=== PATIENT | male | born 1970 | race American Indian/Alaskan Native ===

== ENCOUNTER 2021-11-09 23:44 | Observation (INO) | payer MEDICARE ==
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
[2021-11-10 00:28] LABS: Hemoglobin 12.2 gm/dl (11.8-15.2); Mean Corpuscular HGB Conc 34 % (32-34); Mean Corpuscular Volume 106 fl (84-94); Platelet Count 191 K/mm3 (140-440); Red Blood Count 3.41 M/mm3 (3.65-5.03)
--- NOTE | 2021-11-10 00:30 | XRay Report ---
CHEST 1 VIEW INDICATION / CLINICAL INFORMATION: weakness esrd. COMPARISON: None available. FINDINGS: SUPPORT DEVICES: Left subclavian ICD HEART / MEDIASTINUM: No significant abnormality. LUNGS / PLEURA: No significant pulmonary or pleural abnormality. No pneumothorax. ADDITIONAL FINDINGS: No significant additional findings. IMPRESSION: 1. No acute findings. Signer Name: Sukh Aldana MD Signed: 11/10/2021 12:26 AM Workstation Name: [id number]
[2021-11-10 00:43] LABS: INR 0.97 (0.87-1.13)
[2021-11-10] MEDS ORDERED: SODIUM CHLORIDE 0.9% 500 ML 500 ML IV ONE (01:07)
[2021-11-10] MEDS ORDERED: MAGNESIUM HYDROXIDE (MOM) ORAL LIQD UDC PO PRN (01:22)
[2021-11-10] MEDS ORDERED: ONDANSETRON 4 MG/2 ML INJ IV PRN (01:22)
[2021-11-10] MEDS ORDERED: MORPHINE 4 MG/1 ML INJ IV PRN (01:22)
[2021-11-10] MEDS ORDERED: MORPHINE 2 MG/1 ML INJ IV PRN (01:22)
[2021-11-10] MEDS ORDERED: ACETAMINOPHEN 325 MG TAB PO PRN (01:22)
[2021-11-10] MEDS ORDERED: POTASSIUM CHLORIDE ER 20 MEQ TAB PO ONE (01:23)
[2021-11-10] MEDS ORDERED: SODIUM CHLORIDE 0.9% 1000 ML 1,000 ML IV SCH (01:30)
--- NOTE | 2021-11-10 01:36 | History and Physical Report ---
History of Present Illness Date of examination: 11/10/21 Date of admission: 11/10/2021 Chief complaint: Generalized Weakness History of present illness: 51-year-old -[place] Citizen male with known history of end-stage renal disease on dialysis on Wednesdays and Fridays brought into the emergency room today for evaluation of generalized weakness and low blood pressure. Patient had received dialysis earlier in the day but later on stated that he was having generalized weakness. He denies any chest pain or shortness of breath, no nausea vomiting, no abdominal pain, no headache or dizziness and no diaphoresis, no fever or chills. Patient feels that he may have been dialyzed for prolonged period of time. Patient was said to be at [facility] on a scooter when he was noted to have low blood pressure feeling very weak. Work-up in the emergency room today, significant findings on the labs were potassium level of 3.3, elevated creatinine kinase of 2246. Magnesium 2.4, BUN of 39 creatinine of 4.8. Chest x-ray was unremarkable. Patient with end-stage renal disease on dialysis being admitted for generalized weakness, hypokalemia and hypotension. Past History Past Medical History: dialysis, ESRD Past Surgical History: No surgical history Social history: no significant social history Medications and Allergies Allergies Allergy/AdvReac Type Severity Reaction Status Date / Time No Known Allergies Allergy Verified 11/10/21 01:11 Active Meds: Active Medications Acetaminophen (Acetaminophen 325 Mg Tab) 650 mg PO Q4H PRN PRN Reason: Pain MILD(1-3)/Fever >100.5/DUNCAN Heparin Sodium (Porcine) (Heparin 5,000 Unit/1 Ml Vial) 5,000 unit SUB-Q Q8HR ASTON Sodium Chloride (Nacl 0.9% 500 Ml) 500 mls @ 999 mls/hr IV ONCE ONE Stop: 11/10/21 01:37 Sodium Chloride (Nacl 0.9% 1000 Ml) 1,000 mls @ 75 mls/hr IV DIRECT ASTON Magnesium Hydroxide (Magnesium Hydroxide (Mom) Oral Liqd Udc) 30 ml PO Q4H PRN PRN Reason: Constipation Morphine Sulfate (Morphine 2 Mg/1 Ml Inj) 2 mg IV Q4H PRN PRN Reason: Pain, Moderate (4-6) Morphine Sulfate (Morphine 4 Mg/1 Ml Inj) 4 mg IV Q4H PRN PRN Reason: Pain , Severe (7-10) Ondansetron HCl (Ondansetron 4 Mg/2 Ml Inj) 4 mg IV Q8H PRN PRN Reason: Nausea And Vomiting Sodium Chloride (Sodium Chloride 0.9% 10 Ml Flush Syringe) 10 ml IV BID ASTON Sodium Chloride (Sodium Chloride 0.9% 10 Ml Flush Syringe) 10 ml IV PRN PRN PRN Reason: LINE FLUSH Review of Systems Constitutional: weakness, no fever, no chills Ears, nose, mouth and throat: no nasal congestion, no sore throat Cardiovascular: no chest pain, no palpitations Respiratory: no cough, no shortness of breath Gastrointestinal: no nausea, no vomiting, no diarrhea Genitourinary Male: no dysuria, no hematuria, no flank pain Musculoskeletal: no neck pain, no low back pain Integumentary: no rash, no pruritis Neurological: no headaches, no confusion Psychiatric: no anxiety, no depression Endocrine: no polyphagia, no polydipsia, no polyuria, no nocturia Exam - Constitutional Vitals: Temp Pulse Resp BP Pulse Ox 97.8 F 87 14 98/56 98 11/10/21 00:04 11/10/21 00:04 11/10/21 00:04 11/10/21 00:04 11/10/21 00:04 General appearance: Present: no acute distress, well-nourished, obese - EENT Eyes: Present: PERRL, EOM intact. Absent: scleral icterus ENT: clear oral mucosa, dentition normal - Neck Neck: Present: supple, normal ROM - Respiratory Respiratory effort: normal Respiratory: bilateral: CTA - Cardiovascular Rhythm: regular Heart Sounds: Present: S1 & S2. Absent: systolic murmur, diastolic murmur, rub, click - Extremities Extremities: no ischemia, pulses intact, pulses symmetrical, normal temperature, normal color, Full ROM Extremity abnormal: edema (2+ bilateral lower extremity edema) Peripheral Pulses: within normal limits - Abdominal General gastrointestinal: Present: soft, non-tender, non-distended, normal bowel sounds. Absent: mass - Integumentary Integumentary: Present: clear, warm, dry, normal turgor. Absent: rash - Musculoskeletal Musculoskeletal: strength equal bilaterally - Psychiatric Psychiatric: appropriate mood/affect, intact judgment & insight, memory intact, cooperative - Neurologic Neurologic: CNII-XII intact, no focal deficits, moves all extremities - Additional findings Additional findings: Skin: Multiple open ulcers in the distal one third of the left leg. No obvious drainage Results - Labs CBC & Chem 7: 11/10/21 00:04 11/10/21 00:04 Labs: Abnormal lab results 11/10/21 11/10/21 Range/Units 00:04 00:04 RBC 3.41 L (3.65-5.03) M/mm3 MCV 106 H (84-94) fl MCH 36 H (28-32) pg RDW 17.0 H (13.2-15.2) % Potassium 3.3 L (3.6-5.0) mmol/L Chloride 96.2 L (98-107) mmol/L BUN 39 H (9-20) mg/dL Creatinine 4.8 H (0.8-1.3) mg/dL Glucose 110 H (75-100) mg/dL Magnesium 2.40 H (1.7-2.3) mg/dL Total Creatine Kinase 2246 H (55-170) units/L Assessment and Plan Assessment: 1. Generalized weakness 2. Elevated creatinine kinase 3. End-stage renal disease on dialysis 4. Hypokalemia 5. Hypotension Plan: 1. Patient admitted and placed on gentle IV fluid hydration and monitor vital signs closely. 2. Consult placed to nephrology for evaluation and recommendations. 3. Potassium will be repleted and will monitor chemistry 4. We will resume routine home medications once reconciled. DVT prophylaxis: Subcutaneous heparin CODE STATUS: Full code
[2021-11-10] MEDS: HEPARIN 5,000 UNIT/1 ML VIAL SUB-Q SCH ×3 (06:02→21:37)
--- NOTE | 2021-11-10 12:13 | Progress Note ---
Assessment and Plan Assessment and plan: 51-year-old -Swedish male with known history of end-stage renal disease on dialysis on Wednesdays and Fridays brought into the emergency room today for evaluation of generalized weakness and low blood pressure. Patient received dialysis earlier in the day but later on stated that he was having generalized weakness. Patient was said to be at [employer] on a scooter when he was noted to have low blood pressure feeling very weak. Work-up in the emergency room revealed potassium level of 3.3, elevated creatinine kinase of 2246. Magnesium 2.4, BUN of 39 creatinine of 4.8. Chest x-ray was unremarkable. Generalized weakness Rhabdomyolysis ESRD on HD Hypokalemia Hypotension 11/10/2021. Patient states that he feels near baseline. Await nephrology consultation. Replete potassium. Await PT evaluation to determine disposition. History Interval history: No new issues overnight Hospitalist Physical - Constitutional Vitals: Temp Pulse Resp BP Pulse Ox 97.8 F 85 19 128/81 94 11/10/21 02:32 11/10/21 02:32 11/10/21 03:50 11/10/21 02:32 11/10/21 03:50 General appearance: Present: no acute distress, well-nourished, obese - EENT Eyes: Present: PERRL, EOM intact ENT: hearing intact, clear oral mucosa, dentition normal - Neck Neck: Present: supple, normal ROM - Respiratory Respiratory effort: normal Respiratory: bilateral: CTA - Cardiovascular Rhythm: regular Heart Sounds: Present: S1 & S2. Absent: gallop, rub - Extremities Extremities: no ischemia, No edema, Full ROM - Abdominal General gastrointestinal: soft, non-tender, non-distended, normal bowel sounds - Integumentary Integumentary: Present: clear, warm, dry - Neurologic Neurologic: CNII-XII intact, moves all extremities Results - Labs CBC & Chem 7: 11/10/21 00:04 11/10/21 00:04 Labs: Laboratory Last Values WBC 6.8 K/mm3 (4.5-11.0) 11/10/21 00:04 RBC 3.41 M/mm3 (3.65-5.03) L 11/10/21 00:04 Hgb 12.2 gm/dl (11.8-15.2) 11/10/21 00:04 Hct 36.0 % (35.5-45.6) 11/10/21 00:04 MCV 106 fl (84-94) H 11/10/21 00:04 MCH 36 pg (28-32) H 11/10/21 00:04 MCHC 34 % (32-34) 11/10/21 00:04 RDW 17.0 % (13.2-15.2) H 11/10/21 00:04 Plt Count 191 K/mm3 (140-440) 11/10/21 00:04 PT 14.0 Sec. (12.2-14.9) 11/10/21 00:04 INR 0.97 (0.87-1.13) 11/10/21 00:04 Sodium 141 mmol/L (137-145) 11/10/21 00:04 Potassium 3.3 mmol/L (3.6-5.0) L 11/10/21 00:04 Chloride 96.2 mmol/L (98-107) L 11/10/21 00:04 Carbon Dioxide 28 mmol/L (22-30) 11/10/21 00:04 Anion Gap 20 mmol/L 11/10/21 00:04 BUN 39 mg/dL (9-20) H 11/10/21 00:04 Creatinine 4.8 mg/dL (0.8-1.3) H 11/10/21 00:04 Estimated GFR 15 ml/min 11/10/21 00:04 BUN/Creatinine Ratio 8 % 11/10/21 00:04 Glucose 110 mg/dL (75-100) H 11/10/21 00:04 Calcium 9.0 mg/dL (8.4-10.2) 11/10/21 00:04 Magnesium 2.40 mg/dL (1.7-2.3) H 11/10/21 00:04 Total Creatine Kinase 2246 units/L (55-170) H 11/10/21 00:04 Active Medications - Current Medications Current Medications: Generic Name Dose Route Start Last Admin Trade Name Freq PRN Reason Stop Dose Admin Acetaminophen 650 mg 11/10/21 01:22 Acetaminophen 325 Mg Tab PO Q4H PRN Pain MILD(1-3)/Fever >100.5/DUNCAN Heparin Sodium (Porcine) 5,000 unit 11/10/21 06:00 11/10/21 06:02 Heparin 5,000 Unit/1 Ml Vial SUB-Q 5,000 unit Q8HR ASTON Administration Sodium Chloride 1,000 mls @ 75 mls/hr 11/10/21 01:30 Nacl 0.9% 1000 Ml IV DIRECT ASTON Magnesium Hydroxide 30 ml 11/10/21 01:22 Magnesium Hydroxide (Mom) Oral Liqd Udc PO Q4H PRN Constipation Morphine Sulfate 2 mg 11/10/21 01:22 Morphine 2 Mg/1 Ml Inj IV Q4H PRN Pain, Moderate (4-6) Morphine Sulfate 4 mg 11/10/21 01:22 Morphine 4 Mg/1 Ml Inj IV Q4H PRN Pain , Severe (7-10) Ondansetron HCl 4 mg 11/10/21 01:22 Ondansetron 4 Mg/2 Ml Inj IV Q8H PRN Nausea And Vomiting Sodium Chloride 10 ml 11/10/21 10:00 11/10/21 11:02 Sodium Chloride 0.9% 10 Ml Flush Syringe IV 10 ml BID ASTON Administration Sodium Chloride 10 ml 11/10/21 01:22 Sodium Chloride 0.9% 10 Ml Flush Syringe IV PRN PRN LINE FLUSH
--- NOTE | 2021-11-10 12:15 | Electrocardiograph Report ---
[facility] Test Date: 2021-11-10 Test Time: 00:14:42 Pat Name: YONNY PANTOJA Department: Room: A390 1 Gender: M Registered Nurse Float Pool: LARRY : [id number] Requested By: CARLIN GE Order Number: [id number] Reading MD: Cruzito Nguyen Measurements Intervals [place] Rate: 87 P: 72 NV: 194 QRS: 16 QRSD: 115 T: 58 QT: 463 QTc: 553 Interpretive Statements Sinus rhythm Ventricular premature complex Nonspecific intraventricular conduction delay Anterior infarct, old Prolonged QT interval No previous ECG available for comparison Electronically Signed On 11-10-2021 12:14:39 EDT by Cruzito Nguyen
--- NOTE | 2021-11-10 13:12 | Consultation ---
History of Present Illness - History of Present Illness Thank you for the consultation ! Patient was evaluated today, Assessment and plan; #End-stage kidney disease: Patient will continue to receive hemodialysis treatment 3 times a week and has had dialysis yesterday we will check the electrolytes tomorrow and consider higher dialysate potassium bath, may consider sodium modeling,, Patient will receive his hemodialysis treatment tomorrow Monitor dialysis related labs/monitor for any access issues Fluid restriction 1200 cc/day high-protein diet #Access: Needs to be monitored during dialysis #Hypertension and volume: Blood pressure has been low, he is being evaluated by cardiology if needed will consider using midodrine, his BMI is 57.3 morbidly obese male #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: To monitor and follow erythropoietin periodically goal hemoglobin between 10-11-1/2 Minimize lab draw in dialysis patients, if possible consider limiting to dialysis days #Bone mineral disorder and secondary hyperparathyroidism; Monitor phosphorus binders as necessary goal phosphorus less than 5-1/2 #Diet and nutrition: Consider high-protein diet nutrition supplementation, #Medication recommendation: Please dose for creatinine clearance less than 15 cc/min All related questions have been addressed with the patient including diet lifestyle changes fluid restriction sodium restrictions avoidance of processed food as much as possible. Patient needs radical changes in his diet and lifestyle, overall prognosis g uarded to poor due to end-stage kidney disease and multiple complex health issues If you have any questions regarding this patient's renal care please feel free to reach me at [phone] Author: Arsenio Salas M.D. [facility], 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, he does go to [facility], has had dialysis yesterday currently is feeling comfortable, he is morbidly obese, events of this hospitalization were noted Hemoglobin was 12.2 potassium 3.3 today with a BUN of 39 creatinine of 4.8, blood pressure was borderline 98/56, Past medical history: End-stage kidney disease 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 Secondary hyperparathyroidism Hypertension Current allergies: Reviewed from the current chart Social history: Reviewed from the current chart Family history: Reviewed from the current chart Review of system: Positive for All other review of systems negative Physical examination Vitals: Reviewed General: No acute distress HEENT: Oral mucosa moist no pallor or icterus Neck: Supple without any JVD thyromegaly or nodular mass Chest: Clear to auscultation Heart: Regular rate and rhythm S1-S2 heard no S3-S4 Abdomen: Soft nontender, bowel sounds present no renal bruit no suprapubic masses no CVA tenderness noted Morbidly obese abdomen, very limited examination Extremity: Minimal edema dry skin no peripheral cyanosis Per patient fistula has been working well and was evaluated nearly 3 months ago Endocrine: Thyroid not enlarged Psychiatric: No agitation and aggression noted Musculoskeletal: No joint effusion noted Labs and x-rays: Reviewed from this admission Past History Past Medical History: dialysis, ESRD Past Surgical History: No surgical history Social history: no significant social history Medications and Allergies Allergies Allergy/AdvReac Type Severity Reaction Status Date / Time No Known Allergies Allergy Verified 11/10/21 01:11 Home Medications Medication Instructions Recorded Confirmed Last Taken Type No Known Home Medications [No 11/10/21 11/10/21 Unknown History Reported Home Medications] Active Meds: Active Medications Acetaminophen (Acetaminophen 325 Mg Tab) 650 mg PO Q4H PRN PRN Reason: Pain MILD(1-3)/Fever >100.5/DUNCAN Heparin Sodium (Porcine) (Heparin 5,000 Unit/1 Ml Vial) 5,000 unit SUB-Q Q8HR ASTON Last Admin: 11/10/21 06:02 Dose: 5,000 unit Sodium Chloride (Nacl 0.9% 1000 Ml) 1,000 mls @ 75 mls/hr IV DIRECT ASTON Magnesium Hydroxide (Magnesium Hydroxide (Mom) Oral Liqd Udc) 30 ml PO Q4H PRN PRN Reason: Constipation Morphine Sulfate (Morphine 2 Mg/1 Ml Inj) 2 mg IV Q4H PRN PRN Reason: Pain, Moderate (4-6) Morphine Sulfate (Morphine 4 Mg/1 Ml Inj) 4 mg IV Q4H PRN PRN Reason: Pain , Severe (7-10) Ondansetron HCl (Ondansetron 4 Mg/2 Ml Inj) 4 mg IV Q8H PRN PRN Reason: Nausea And Vomiting Sodium Chloride (Sodium Chloride 0.9% 10 Ml Flush Syringe) 10 ml IV BID ASTON Last Admin: 11/10/21 11:02 Dose: 10 ml Sodium Chloride (Sodium Chloride 0.9% 10 Ml Flush Syringe) 10 ml IV PRN PRN PRN Reason: LINE FLUSH Exam - Vital Signs Vital signs: Vital Signs Temp Pulse Resp BP Pulse Ox 97.8 F 87 14 98/56 98 11/10/21 00:04 11/10/21 00:04 11/10/21 00:04 11/10/21 00:04 11/10/21 00:04 Results - Lab Results 11/10/21 00:04 11/10/21 00:04 Most recent lab results Calcium 9.0 mg/dL (8.4-10.2) 11/10/21 00:04 Magnesium 2.40 mg/dL (1.7-2.3) H 11/10/21 00:04
[2021-11-11 05:53] LABS: Basophils # (Auto) 0.1 K/mm3 (0.0-0.1); Basophils % (Auto) 0.9 % (0.0-1.8); Eosinophils # (Auto) 0.2 K/mm3 (0.0-0.4); Eosinophils % (Auto) 3.6 % (0.0-4.3); Hematocrit 36.1 % (35.5-45.6); Hemoglobin 12.2 gm/dl (11.8-15.2); Lymphocytes # (Auto) 0.8 K/mm3 (1.2-5.4); Lymphocytes % (Auto) 12.7 % (13.4-35.0); Mean Corpuscular HGB Conc 34 % (32-34); Mean Corpuscular Volume 105 fl (84-94); Monocytes # (Auto) 0.7 K/mm3 (0.0-0.8); Monocytes % (Auto) 12.2 % (0.0-7.3); Platelet Count 173 K/mm3 (140-440); Red Blood Count 3.42 M/mm3 (3.65-5.03); Red Cell Distribution Width 17.4 % (13.2-15.2)
[2021-11-11] MEDS: HEPARIN 5,000 UNIT/1 ML VIAL SUB-Q SCH ×2 (06:10→14:58)
[2021-11-11 06:12] LABS: Calcium 8.1 mg/dL (8.4-10.2)
--- NOTE | 2021-11-11 09:36 | Discharge Summary ---
Providers - Providers Date of Admission: 11/10/21 01:22 Date of discharge: 11/11/21 Attending physician: KEIRY HAMILTON 11/10/21 01:22 Consult to Physician [CONS] Routine Comment: Consulting Provider: TYLER ROBERTO Physician Instructions: Reason For Exam: End-stage renal disease on dialysis 11/10/21 09:45 Physical Therapy Evaluation and Treat [CONS] Routine Comment: Reason For Exam: gen weakness Hospitalization Reason for admission: Generalized weakness Condition: Good Hospital course: 51-year-old -Spanish male with known history of end-stage renal disease on dialysis on Wednesdays and Fridays brought into the emergency room today for evaluation of generalized weakness and low blood pressure. Patient r eceived dialysis earlier in the day but later on stated that he was having generalized weakness. Patient was said to be at [facility] on a scooter when he was noted to have low blood pressure feeling very weak. Work-up in the emergency room revealed potassium level of 3.3, elevated creatinine kinase of 2246. Magnesium 2.4, BUN of 39 creatinine of 4.8. Chest x-ray was unremarkable. The patient was admitted with diagnosis below Generalized weakness Rhabdomyolysis ESRD on HD Hypokalemia Hypotension Shortly after admission, patient stated that he felt near baseline. Nephrology was consulted for hemodialysis. Repleted potassium. The patient reports that he feels much better and back to his baseline. Therefore, patient will discharge home and is to follow-up with his PCP and nephrology. Dedicated discharge time 35 minutes Disposition: 01 HOME / SELF CARE / HOMELESS Final Discharge Diagnosis (Prints w/discharge instructions): Generalized weakness. Rhabdomyolysis. ESRD on HD. Hypokalemia. Hypotension Core Measure Documentation - Palliative Care Palliative Care/ Comfort Measures: Not Applicable - Core Measures Any of the following diagnoses?: none Exam - Constitutional Vitals: Temp Pulse Resp BP Pulse Ox 98.9 F 92 H 20 143/69 96 11/11/21 05:17 11/11/21 05:17 11/11/21 05:17 11/11/21 05:17 11/11/21 07:25 General appearance: Present: no acute distress, well-nourished - EENT Eyes: Present: PERRL ENT: hearing intact, clear oral mucosa - Neck Neck: Present: supple, normal ROM - Respiratory Respiratory effort: normal Respiratory: bilateral: CTA - Cardiovascular Heart Sounds: Present: S1 & S2. Absent: rub, click - Extremities Extremities: pulses symmetrical, No edema Peripheral Pulses: within normal limits - Abdominal General gastrointestinal: Present: soft, non-tender, non-distended, normal bowel sounds Male genitourinary: Present: normal - Integumentary Integumentary: Present: clear, warm, dry - Musculoskeletal Musculoskeletal: gait normal, strength equal bilaterally - Psychiatric Psychiatric: appropriate mood/affect, intact judgment & insight - Neurologic Neurologic: CNII-XII intact, moves all extremities Plan Activity: advance as tolerated Weight Bearing Status: Weight Bear as Tolerated Diet: renal Follow up with: WILLIS ABBOTT [Other] - 3-5 Days TYLER ROBERTO MD [Staff Physician] - 7 Days
--- NOTE | 2021-11-11 10:21 | Progress Note ---
Subjective Interval history: Assessment and plan #End-stage kidney disease: Patient has been adequately counseled and educated regarding end-stage kidney disease care, will order for hemodialysis treatment today after which she will be following up with his electrolysis investigator in outpatient setting, #Hypokalemia we will give him a 4K potassium bath, patient was advised to liberalize dietary intake of potassium, he does not have any history of diarr hea, #Further education can be obtained from [email or web address] as well as [employer], If stable postdialysis can be considered for discharge to follow-up with his electrolysis investigator in the outpatient setting Patient was adequately counseled and educated regarding all the renal related is sues, relevant renal related labs were also discussed and all questions were answered If there are any renal related issues in regards to this patient please feel free to reach out without any hesitation at [phone] We'll continue to follow and make recommendation for renal standpoint. Progress note by: Arsenio Salas MD [address] [place] [id number] Tele [phone] [email or web address] Patient was seen today for follow-up of multiple renal related issues No complaints of any chest pain pressure or shortness of breath Interdisciplinary notes that also reviewed, he is due for dialysis today Events of 24 hours vitals labs intake output medications were reviewed Past medical history: Reviewed Family history: Reviewed Social history: Reviewed Allergies: Reviewed Physical examination: Vitals: Reviewed HEENT: No pallor or icterus oral mucosa moist Neck: Supple no JVD no thyromegaly Chest: Bilateral clear to auscultation anteriorly Heart: Regular rate and rhythm S1-S2 heard no S3-S4 Abdomen: Soft nontender no voluntary guarding rigidity rebound Extremity: Dry skin less than 1+ peripheral edema Psychiatric: No evidence of agitation and aggression noted Dermatology: No petechial rashes Labs and x-rays: Reviewed from today Objective - Vital Signs Vital signs: Vital Signs - 12hr 11/11/21 11/11/21 11/11/21 00:00 05:17 07:25 Temperature 97.9 F 98.9 F Pulse Rate 91 H 92 H Respiratory 20 20 Rate Blood Pressure 143/69 Blood Pressure 115/79 [Left] O2 Sat by Pulse 96 93 96 Oximetry - Lab 11/11/21 05:07 11/11/21 05:07 Most recent lab results Calcium 8.1 mg/dL (8.4-10.2) L 11/11/21 05:07 Magnesium 2.40 mg/dL (1.7-2.3) H 11/10/21 00:04 Medications & Allergies - Medications Allergies/Adverse Reactions: Allergies No Known Allergies Allergy (Verified 11/10/21 01:11) Home Medications: Home Medications Medication Instructions Recorded Confirmed Last Taken Type No Known Home Medications [No 11/10/21 11/10/21 Unknown History Reported Home Medications] Active Medications: Generic Name Dose Route Start Last Admin Trade Name Freq PRN Reason Stop Dose Admin Acetaminophen 650 mg 11/10/21 01:22 Acetaminophen 325 Mg Tab PO Q4H PRN Pain MILD(1-3)/Fever >100.5/DUNCAN Heparin Sodium (Porcine) 5,000 unit 11/10/21 06:00 11/11/21 06:10 Heparin 5,000 Unit/1 Ml Vial SUB-Q 5,000 unit Q8HR ASTON Administration Sodium Chloride 1,000 mls @ 75 mls/hr 11/10/21 01:30 11/11/21 06:12 Nacl 0.9% 1000 Ml IV 75 mls/hr DIRECT ASTON Administration Sodium Chloride 100 mls @ 999 mls/hr 11/11/21 10:19 Nacl 0.9% IV SANTA PRN Hypotension Magnesium Hydroxide 30 ml 11/10/21 01:22 Magnesium Hydroxide (Mom) Oral Liqd Udc PO Q4H PRN Constipation Morphine Sulfate 2 mg 11/10/21 01:22 Morphine 2 Mg/1 Ml Inj IV Q4H PRN Pain, Moderate (4-6) Morphine Sulfate 4 mg 11/10/21 01:22 Morphine 4 Mg/1 Ml Inj IV Q4H PRN Pain , Severe (7-10) Ondansetron HCl 4 mg 11/10/21 01:22 Ondansetron 4 Mg/2 Ml Inj IV Q8H PRN Nausea And Vomiting Sodium Chloride 10 ml 11/10/21 10:00 11/11/21 09:43 Sodium Chloride 0.9% 10 Ml Flush Syringe IV 10 ml BID ASTON Administration Sodium Chloride 10 ml 11/10/21 01:22 Sodium Chloride 0.9% 10 Ml Flush Syringe IV PRN PRN LINE FLUSH
[2021-11-11] MEDS ORDERED: SODIUM CHLORIDE 0.9% 100 ML IV PRN (11:00)
[2021-11-11 15:01] LABS: Hepatitis B Surface Antigen Non-Reactive (Negative); Hepatitis C Virus Antibody Non-Reactive (NonReactive)
[2021-11-11 20:39] VITALS: BP 151/80
== END 2021-11-11 20:10 | disposition home or self-care (01) ==
LOC: ED 23:44 → INTOOBSV 11-10 01:22 → 3A 11-10 01:22
PROVIDERS: ADMIT Internal Medicine Geriatric Medicine; ATTEND Hospitalist
DX: R53.1 Weakness (principal); I95.9 Hypotension, unspecified; I12.0 Hypertensive chronic kidney disease with stage 5 chronic kidney disease or end stage renal disease; N18.6 End stage renal disease; D63.1 Anemia in chronic kidney disease; N25.81 Secondary hyperparathyroidism of renal origin; M62.82 Rhabdomyolysis; E87.6 Hypokalemia; R79.89 Other specified abnormal findings of blood chemistry; Z99.2 Dependence on renal dialysis; Z79.899 Other long term (current) drug therapy; Z98.890 Other specified postprocedural states
CPT/HCPCS: 36415; 71045; 80048; 80074; 82550; 83735; 85025; 85027; 85610; 93005; 96360; 96372; 97161; 97530; 99285; G0257; G0378; J1644; J7030; J7040